=== PATIENT | male | born 1990 | race Caucasian/White ===

== ENCOUNTER 2023-03-16 09:57 | Emergency (ER) | payer SELFPAY ==
[2023-03-16 10:03] VITALS: BP 142/85; PULSE 114; RESP 16; TEMP 36.2; O2SAT 100
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
== END 2023-03-16 10:53 | disposition home or self-care (01) ==
PROVIDERS: Emergency Provider Nurse Practitioner Family
DX: L03.115 Cellulitis of right lower limb (principal); S91.011A Laceration without foreign body, right ankle, initial encounter; W45.8XXA Other foreign body or object entering through skin, initial encounter
CPT/HCPCS: 99213; G0463